=== PATIENT | male | born 1940 | race Caucasian/White ===

== ENCOUNTER 2022-08-13 07:08 | Day surgery (SDC) | payer MEDICARE ==
[2022-08-07 12:06] LABS: BASOPHILS % (AUTO) 0.5 % (0.0-5.0); EOSINOPHILS % (AUTO) 1.3 % (0.0-8.0); HEMATOCRIT 47.4 % (42-54); LYMPHOCYTES % (AUTO) 34.3 % (21.0-51.0); MEAN CORPUSCULAR HEMOGLOBIN 29.1 pg (27.0-33.0); MEAN CORPUSCULAR HGB CONC 32.9 g/dL (32.0-36.0); MEAN CORPUSCULAR VOLUME 88.4 fL (79-99); MONOCYTES % (AUTO) 7.9 % (3.0-13.0); NEUTROPHILS % (AUTO) 55.7 % (40.0-77.0); PLATELET COUNT (AUTO) 221 K/uL (130-400); RED BLOOD CELL COUNT(AUTO) 5.36 MIL/uL (4.50-6.20); RED CELL DISTRIBUTION WIDTH 13.2 % (11.0-15.5); WHITE BLOOD COUNT (AUTO) 7.8 K/uL (4.8-10.8)
[2022-08-07 12:11] VITALS: BP 134/84
[2022-08-07 12:16] LABS: INR 1.1 (0.85-1.15); PROTHROMBIN TIME 11.9 SEC (9.6-11.6)
[2022-08-07 12:17] LABS: PARTIAL THROMBOPLASTIN TIME 27.2 SEC (26.3-35.5)
[2022-08-07 12:23] LABS: CREATININE 1.5 mg/dL (0.5-1.5); POTASSIUM 4.8 mmol/L (3.5-5.1)
[2022-08-07 12:40] LABS: APPEARANCE,URINE CLEAR (CLEAR); BILIRUBIN,URINE NEGATIVE (NEGATIVE); COLOR,URINE YELLOW (YELLOW); GLUCOSE, URINE (UA) NEGATIVE (NEGATIVE); KETONES,URINE NEGATIVE (NEGATIVE); LEUKOCYTE ESTERASE ,URINE NEGATIVE Leu/uL (NEGATIVE); NITRATE,URINE NEGATIVE (NEGATIVE); OCCULT BLOOD,URINE NEGATIVE (NEGATIVE); PROTEIN,URINE NEGATIVE (NEGATIVE); UROBILINOGEN,URINE 0.2 mg/dL (0.2-1.0)
[~2022-08-13] VITALS: Ht 177.8 cm; Wt 68.5 kg
[2022-08-13] VITALS (17 sets, daily range): BP systolic 99–135; BP diastolic 62–84
[~2022-08-13 07:08] MED LIST: ASPI-1197 PO; CHOL2000 PO; METAMUCIL POWDER PO; MULT-1258 PO; ROSU5TAB12 PO; TAMS-1 PO
[2022-08-13] MEDS ORDERED: LACTATED RINGERS 1000ML 1,000 ML IV ONE (07:48)
[2022-08-13] MEDS ORDERED: CEFTRIAXONE 1G VIAL ONE (08:41)
[2022-08-13] MEDS ORDERED: LIDOCAINE PF 100MG/5ML (2%) SYRINGE 5ML ONE (08:46)
[2022-08-13] MEDS ORDERED: ROCURONIUM 10MG/1ML SYR 10 MG/ML ML ONE (08:47)
[2022-08-13] MEDS ORDERED: FENTANYL CITRATE PF 50 MCG/1 ML 2ML VIAL ONE (08:47)
[2022-08-13] MEDS ORDERED: PROPOFOL 10 MG/ML 20ML VIAL IV ONE (08:47)
[2022-08-13] MEDS ORDERED: CEFTRIAXONE 1G VIAL IVPB ONE (09:20)
[2022-08-13] MEDS ORDERED: DEXAMETHASONE SOD PHOSPHATE 10MG/ML 1ML VIAL ONE (09:30)
[2022-08-13] MEDS ORDERED: ONDANSETRON 4MG INJ ONE (09:30)
[2022-08-13] MEDS ORDERED: PHENYLEPHRINE HCL 10 MG/ML 1ML VIAL IV ONE (09:36)
[2022-08-13] MEDS ORDERED: GLYCOPYRROLATE 1 MG/5 ML SYRINGE ONE (09:55)
[2022-08-13] MEDS ORDERED: NEOSTIGMINE 5MG/5ML SYR IV ONE (09:56)
[2022-08-13] MEDS ORDERED: MEPERIDINE-PF 25 MG/ML SYG ONE (10:39)
== END 2022-08-13 11:50 | disposition home or self-care (01) ==
LOC: DAH 07:08
PROVIDERS: ATTEND Urology
DX: N40.0 Benign prostatic hyperplasia without lower urinary tract symptoms (principal); N35.813 Other membranous urethral stricture, male; I25.110 Atherosclerotic heart disease of native coronary artery with unstable angina pectoris; K21.9 Gastro-esophageal reflux disease without esophagitis; M19.90 Unspecified osteoarthritis, unspecified site; Z88.1 Allergy status to other antibiotic agents; Z88.2 Allergy status to sulfonamides; Z79.899 Other long term (current) drug therapy; Z20.822 Contact with and (suspected) exposure to COVID-19; Z98.890 Other specified postprocedural states; Z95.0 Presence of cardiac pacemaker; Z79.82 Long term (current) use of aspirin
CPT/HCPCS: 80048; 85025; 85610; 85730; 87088; 87426; 81003; 36415; 71045; 93005; 52450; A6260; A4663; J7030; C1758; A4354; J7120; J3010; J3490; J1100; J2710; J2001; J0696 ×2; J2704; J2405; J2175; J2370; A4358 ×2; A4215; A4223; A4222; A4221; A4600